=== PATIENT | female | born 1940 | race Caucasian/White ===

== ENCOUNTER 2023-08-22 17:00 | Inpatient (IN) | payer MEDICARE, SELFPAY ==
[2023-08-22] MEDS ORDERED: Morphine 4 MG/ML VIAL ONE (17:21)
[2023-08-22] MEDS ORDERED: Ondansetron PF 4 MG/2 ML Vial ONE (17:21)
[2023-08-22] MEDS ORDERED: Boostrix 0.5 ML (Tdap) VIAL (>/=7 yrs of age) ONE (17:22)
[2023-08-22] MEDS ORDERED: Morphine 2 MG/ML VIAL ONE (19:43)
[2023-08-22] MEDS ORDERED: Morphine 4 MG/ML VIAL SLOW IVP PRN (19:53)
[2023-08-22] MEDS ORDERED: Dextrose 50% Abboject 50 ML SYRINGE SLOW IVP PRN (19:53)
[2023-08-22] MEDS ORDERED: Dextrose 5% in Water 1,000 ML IV PRN (19:53)
[2023-08-22] MEDS ORDERED: Glucagon 1 MG/ML KIT IM PRN (19:53)
[2023-08-22] MEDS ORDERED: Acetaminophen 325 MG TAB PO PRN (19:53)
[2023-08-22] MEDS ORDERED: hydrALAZINE 20 MG/ML VIAL SLOW IVP PRN (19:56)
[2023-08-22] MEDS ORDERED: Ondansetron PF 4 MG/2 ML Vial IVP PRN (19:56)
[2023-08-22] MEDS ORDERED: Ipratropium/Albuterol 3 ML NEB NEB PRN (19:56)
[2023-08-22] MEDS ORDERED: Rib Fracture Protocol PO SCH (20:00)
[2023-08-22 22:08] VITALS: BMI 34.1
[2023-08-22] MEDS: TETANUS, DIPHTHERIA TOX,ADULT (TDVAX) 0.5 ML VIAL IM ONE (23:20)
[2023-08-23] MEDS ORDERED: Cyclobenzaprine 10 MG TAB PO PRN (01:30)
[2023-08-23] MEDS: traMADol HCl 50 MG TAB PO PRN (03:19)
[2023-08-23 05:09] LABS: #Basophils 0.05 10x3/uL (0.0-0.2); %Basophils 0.7 % (0.0-1.0); %Eosinophils 1.8 % (0.0-10.0); %Lymphocytes 13.2 % (21.0-51.0); %Monocytes 16.6 % (0.0-10.0); %Neutrophils 67.4 % (42.0-75.0); Hematocrit 29.5 % (36.0-47.0); Mean Corpuscular HGB CONC 33.9 g/dL (32.0-36.0); Mean Corpuscular Hemoglobin 32.6 pg (27.0-31.0); Mean Corpuscular Volume 96.1 fL (78.0-98.0); Mean Platelet Volume 9.7 fL (7.4-10.4); Platelet Count 174 10x3/uL (130-400); RBC Distribution Width 13.2 % (11.5-14.5); Red Blood Cell (RBC) Count 3.07 mill/uL (4.20-5.40)
[2023-08-23 05:25] LABS: Anion Gap 14 mmol/L (10-20); BUN (Urea Nitrogen) 28 mg/dL (9.8-20.1); Calc. Creatinine Clearance 69 mL/min (70-130); Calcium 8.4 mg/dL (7.8-10.44); Carbon Dioxide 19 mmol/L (23-31); Chloride 112 mmol/L (98-107); Estimated GFR 64; Glucose 101 mg/dL (83-110); Potassium 3.6 mmol/L (3.5-5.1); Sodium 141 mmol/L (136-145)
[2023-08-23] MEDS: Acetaminophen 500 MG TAB PO SCH (06:03)
[2023-08-23] MEDS: traMADol HCl 50 MG TAB PO SCH (06:03)
[2023-08-23] MEDS: Ibuprofen 200 MG TAB PO SCH (06:05)
[2023-08-23] MEDS: Ipratropium/Albuterol 3 ML NEB NEB SCH (06:34)
[2023-08-23] MEDS: Gabapentin 100 MG CAP PO SCH (09:01)
[2023-08-23] MEDS: Senokot S 8.6-50 MG TAB PO SCH (09:54)
[2023-08-24] MEDS: Topiramate 100 MG TAB PO SCH (21:50)
[2023-08-24] MEDS: Apixaban 5 MG TAB PO SCH (21:50)
[2023-08-24] MEDS: Propafenone HCl 150 MG TAB PO SCH (21:50)
[2023-08-24] MEDS: Rosuvastatin 5 MG TAB PO SCH (21:51)
[2023-08-25] MEDS: Levothyroxine 175 MCG TAB PO SCH (05:59)
[2023-08-25] MEDS: Spironolactone 25 MG TAB PO SCH (08:36)
[2023-08-25] MEDS: BuPROPion XL 150 MG ER.TAB PO SCH (08:37)
[2023-08-25] MEDS: Escitalopram Oxalate 10 mg Tablet PO SCH (08:38)
[2023-08-28 11:45] VITALS: TEMP 97.9
[2023-08-28 15:47] VITALS: BP 137/80
== END 2023-08-28 18:19 | disposition home or self-care (01) | DRG 184 ==
LOC: ERS 17:00 → SURG A 20:04 → OBSVTOIN 08-24 08:44
PROVIDERS: ADMIT Student in an Organized Health Care Education/Training Program; ATTEND Student in an Organized Health Care Education/Training Program
DX: S22.41XA Multiple fractures of ribs, right side, initial encounter for closed fracture (principal); I31.39 Other pericardial effusion (noninflammatory); Z88.8 Allergy status to other drugs, medicaments and biological substances; Z79.01 Long term (current) use of anticoagulants; Z79.899 Other long term (current) drug therapy; I10 Essential (primary) hypertension; E03.9 Hypothyroidism, unspecified; F41.9 Anxiety disorder, unspecified; Z87.891 Personal history of nicotine dependence; W01.0XXA Fall on same level from slipping, tripping and stumbling without subsequent striking against object, initial encounter; S00.83XA Contusion of other part of head, initial encounter; S70.01XA Contusion of right hip, initial encounter; Z90.49 Acquired absence of other specified parts of digestive tract
CPT/HCPCS: 36415; 70450; 71045; 71250; 72125; 80048; 85025; 90715; 94640; 96374; 96375; 96376; G0378; J2270; J2272; J2405; J7620